=== PATIENT | female | born 1960 | race Caucasian/White ===

== ENCOUNTER 2018-12-12 14:11 | Emergency (ER) | payer OTHER, SELFPAY ==
[2018-12-12 14:35] LABS: Absolute Lymphocytes (CBC) 2.4 K/uL (0.7-4.9); Basophils % 0.4 % (0-1.3); Hematocrit 43.2 % (36.0-45.0); Lymphocytes % 16.2 % (15.3-44.8)
[2018-12-12] MEDS ORDERED: ONDANSETRON 4 MG/2 ML VIAL ONE (14:35)
[2018-12-12] MEDS ORDERED: MEPERIDINE HCL 25 MG/0.5 ML ONE (14:35)
[2018-12-12] MEDS ORDERED: NA CHLORIDE 0.9% 1,000 ML ONE (14:35)
--- NOTE | 2018-12-12 14:43 | RAD REPORT ---
EXAM DESCRIPTION: CT - Stone Protocol - 12/12/2018 2:30 pm CLINICAL HISTORY: Abdominal pain. Lower abdominal pain. Urinary frequency COMPARISON: None. TECHNIQUE: Computed axial tomography of the abdomen pelvis was obtained without oral or IV contrast. Lack of IV and oral contrast limits evaluation of solid organs, bowel, and vessels. Coronal reformat jonatan images were obtained and reviewed. All CT scans are performed using dose optimization technique as appropriate and may include automated exposure control or mA/KV adjustment according to patient size. FINDINGS: A renal calculus is not seen. Mild to moderate right hydronephrosis with right perirenal s tranding. 10 millimeter calculus proximal right ureter Hounsfield unit 1453. 27 millimeter low-densit y mass probably a cyst extends off the left kidney The liver, spleen, pancreas and adrenals appear grossly normal. Cholecystectomy There is no evidence of diverticulitis. The appendix appears normal IMPRESSION: A 10 millimeter calculus proximal right ureter resulting in mild to moderate right hydro nephrosis
[2018-12-12 14:48] LABS: ALT/SGPT 132 U/L (12-78); AST/SGOT 111 U/L (15-37); Albumin 3.6 g/dL (3.4-5.0); Alkaline Phosphatase 112 U/L (45-117); BUN Blood Urea Nitrogen 14 mg/dL (7-18); Bicarbonate 29 mmol/L (21-32); Bilirubin Direct < 0.1 mg/dL (0-0.2); Bilirubin Total 0.2 mg/dL (0.2-1.0); Glucose Level 138 mg/dL (74-106); Lipase 221 U/L (73-393); Potassium 4.3 mmol/L (3.5-5.1); Protein, Total 7.1 g/dL (6.4-8.2); Sodium Level 142 mmol/L (136-145)
[2018-12-12 15:07] LABS: Urine Bacteria <20 /HPF (<20); Urine Culture Reflex Order NOT NEEDED; Urine RBC >50 /HPF (NONE SEEN)
[2018-12-12 15:10] LABS: Urine Blood 3+ (NEG); Urine Glucose NEGATIVE (NEG); Urine Protein 1+ (NEG); Urine Specific Gravity >1.030 (1.005-1.030)
[2018-12-12] MEDS ORDERED: TAMSULOSIN 0.4 MG SR CAP ONE (15:11)
[2018-12-12] MEDS ORDERED: MAGNESIUM SULFATE 1 gm IVPB 1 GM/100 ML BAG IV ONE (15:11)
[2018-12-12] MEDS ORDERED: MORPHINE 4 MG/ML SYR ONE (15:19)
--- NOTE | 2018-12-12 16:02 | ER ---
Nurse's Notes [facility] Name: Carla Andrews Age: 58 yrs Sex: Female : 1960 Arrival Date: 12/12/2018 Time: 14:14 Bed 28 Private MD: Diagnosis: Hydronephrosis with renal and ureteral calculous obstruction Presentation: 12/12 14:16 Presenting complaint: Patient states: complaining of flank pain on the right side. does rv not radiate. described as continuous sharp pain. vomited on transport, given Zofran 4mg IV. Transition of care: patient was not received from another setting of care. Onset of symptoms was December 12, 2018 at 14:00. Risk Assessment: Do you want to hurt yourself or someone else? Patient reports no desire to harm self or others. Initial Sepsis Screen: Does the patient meet any 2 criteria? No. Patient's initial sepsis screen is negative. Does the patient have a suspected source of infection? No. Patient's initial sepsis screen is negative. Care prior to arrival: None. 14:16 Method Of Arrival: EMS: central rv 14:16 Acuity: JAMES 3 rv Triage Assessment: 14:21 General: Appears. rv Historical: - Allergies: 14:27 Aspirin; rv 14:27 Dilantin; rv 14:27 Flexeril; rv - Home Meds: 14:27 atorvastatin 20 mg oral tab 1 tab once daily [Active]; primidone 250 mg Oral tab 1 tab rv twice a day [Active]; - PMHx: 14:27 High Cholesterol; Seizures; rv - PSHx: 14:27 Hysterectomy; ; Cholecystectomy; rv - Immunization history:: Adult Immunizations up to date. - Social history:: Smoking status: Patient uses tobacco products, smokes one pack cigarettes per day. - Family history:: not pertinent. - Ebola Screening: : No symptoms or risks identified at this time. - Hospitalizations: : No recent hospitalization is reported. Screenin:29 Abuse screen: Denies threats or abuse. Denies injuries from another. Nutritional rv screening: No deficits noted. Tuberculosis screening: No symptoms or risk factors identified. Fall Risk None identified. Assessment: 14:28 General: Appears in no apparent distress. uncomfortable, Behavior is calm, cooperative. rv Pain: Complains of pain in right flank. Neuro: Level of Consciousness is awake, alert, obeys commands, Oriented to person, place, time, situation. Cardiovascular: Patient's skin is warm and dry. Respiratory: Airway is patent. GI: Abdomen is round Abd is soft X 4 quads Abdomen is tender to palpation in right lower quadrant. : No signs and/or symptoms were reported regarding the genitourinary system. EENT: No signs and/or symptoms were reported regarding the EENT system. Derm: Skin is intact. Musculoskeletal: No signs and/or symptoms reported regarding the musculoskeletal system. 15:05 Reassessment: Patient appears in no apparent distress at this time. Patient and/or rv family updated on plan of care and expected duration. Pain level reassessed. Patient is alert, oriented x 3, equal unlabored respirations, skin warm/dry/pink. blood and radiology reports explained to patient by Dr Steward. discussed plan of care. 15:56 Reassessment: Patient appears in no apparent distress at this time. Patient and/or rv family updated on plan of care and expected duration. Pain level reassessed. Patient is alert, oriented x 3, equal unlabored respirations, skin warm/dry/pink. PATIENT IS FOR TRANSFER TO ANOTHER HOSPITAL FOR CONTINUATION OF CARE. DR STEWARD EXPLAINED TO PATIENT AT BEDSIDE. 17:26 Reassessment: REPORT GIVEN TO HAYDEN CEE RN OF [facility]. rv Vital Signs: 14:20 BP 182 / 72; Pulse 85; Resp 18; Temp 98.9; Pulse Ox 100% on R/A; Weight 113.4 kg; rv Height 5 ft. 6 in. (167.64 cm); Pain 8/10; 15:04 BP 167 / 90; Pulse 73; Resp 16; Pulse Ox 95% on R/A; rv 15:56 BP 163 / 90; Pulse 81; Resp 15; Pulse Ox 96% on R/A; rv 17:25 BP 155 / 86; Pulse 88; Resp 18; Temp 98.5; Pulse Ox 99% on NC; rv 14:20 Body Mass Index 40.35 (113.40 kg, 167.64 cm) rv ED Course: 14:14 Patient arrived in ED. mg2 14:15 Maury Steward MD is Attending Physician. rn 14:15 Maintain EMS IV. Dressing intact. Good blood return noted. Site clean \T\ dry. Gauge \T\ mg 2 site: 20 \T\ RAC. 14:16 Jarek Pickard, KATE is Primary Nurse. rv 14:20 Triage completed. rv 14:29 Patient has correct armband on for positive identification. Bed in low position. Call rv light in reach. Side rails up X 1. Pulse ox on. NIBP on. 14:29 Patient placed in the treatment room, on a stretcher, on pulse oximetry, Patient rv notified of wait time. 14:29 Warm blanket given. rv 14:31 CT Stone Protocol In Process Unspecified. EDMS 15:44 attempted transfer to [facility], pt was declined due to no urologist bd avaliable, per floyd rodriguez. 17:25 No provider procedures requiring assistance completed. Patient transferred, IV remains rv in place. Administered Medications: 14:30 Drug: Zofran 4 mg Route: IVP; Site: right antecubital; mg2 15:00 Follow up: Response: No adverse reaction mg2 14:30 Drug: Demerol 25 mg Route: IVP; Site: right antecubital; mg2 14:52 Follow up: Response: No adverse reaction; Marked relief of symptoms mg2 14:43 Drug: NS 0.9% 1000 ml Route: IV; Rate: 100 ml/hr; Site: right antecubital; rv 14:59 Drug: Flomax 0.4 mg Route: PO; mg2 17:24 Follow up: Response: No adverse reaction rv 15:00 Drug: Magnesium Sulfate 1 grams Route: IVPB; Infused Over: 1 hrs; Site: right mg2 antecubital; 17:24 Follow up: IV Status: Completed infusion rv 15:04 Drug: morphine 4 mg Route: IVP; Site: right antecubital; mg2 17:24 Follow up: Response: Pain is decreased rv 16:57 Drug: morphine 4 mg Route: IVP; Site: right antecubital; rv 17:23 Follow up: Response: No adverse reaction; Medication administered at discharge. rv Outcome: 16:02 ER care complete, transfer ordered by MD. joseph 17:26 Transferred by ground EMS to [facility], Transfer form rv completed. X-rays sent w/ patient. 17:26 Condition: stable 17:26 Instructed on the need for transfer. 17:27 Patient left the ED. rv Signatures: Dispatcher [employer] EDMS Dirrim, Jazmine bd Steward, Maury, MD MD rn Andrey Jean RN RN mg2 Jarek Pickard RN RN rv
--- NOTE | 2018-12-12 16:03 | EDPHYS ---
Physician Documentation [facility] Name: Carla Andrews Age: 58 yrs Sex: Female : 1960 Arrival Date: 12/12/2018 Time: 14:14 Bed 28 Private MD: ED Physician Maury Steward HPI: 12/12 14:16 This 58 yrs old Female presents to ER via Unassigned with complaints of flank rn pain. 14:16 The patient complains of pain in the right low back. The pain radiates to the abdomen. rn Onset: The symptoms/episode began/occurred 1 year(s) ago. Modifying factors: The symptoms are alleviated by nothing. the symptoms are aggravated by nothing. Associated signs and symptoms: Pertinent positives: diarrhea, nausea, vomiting. Severity of pain: At its worst the pain was moderate in the emergency department the pain has improved. The patient has experienced similar episodes in the past. Reports right low back/flank for about a year, intermittent, worse today, assoc with vomiting/diarrhea, worse with bowel movement, no trauma, no fever. . Historical: - Allergies: 14:27 Aspirin; rv 14:27 Dilantin; rv 14:27 Flexeril; rv - Home Meds: 14:27 atorvastatin 20 mg oral tab 1 tab once daily [Active]; primidone 250 mg Oral tab 1 tab rv twice a day [Active]; - PMHx: 14:27 High Cholesterol; Seizures; rv - PSHx: 14:27 Hysterectomy; ; Cholecystectomy; rv - Immunization history:: Adult Immunizations up to date. - Social history:: Smoking status: Patient uses tobacco products, smokes one pack cigarettes per day. - Family history:: not pertinent. - Ebola Screening: : No symptoms or risks identified at this time. - Hospitalizations: : No recent hospitalization is reported. ROS: 14:16 Constitutional: Negative for fever, chills, and weight loss, Eyes: Negative for injury, rn pain, redness, and discharge, Neck: Negative for injury, pain, and swelling, Cardiovascular: Negative for chest pain, palpitations, and edema, Respiratory: Negative for shortness of breath, cough, wheezing, and pleuritic chest pain, Abdomen/GI: + abd pain with nausea/vomiting/diarrhea Back: Negative for injury : Negative for injury, bleeding, discharge, and swelling, MS/Extremity: Negative for injury and deformity, Skin: Negative for injury, rash, and discoloration, Neuro: Negative for headache, weakness, numbness, tingling, and seizure. Exam: 14:16 Constitutional: Overweight female, no acute distress Head/Face: Normocephalic, rn atraumatic. Cardiovascular: Regular rate and rhythm. No pulse deficits. Respiratory: No increased work of breathing, no retractions or nasal flaring. Abdomen/GI: soft, + suprapubic and RLQ tenderness, no rebound Back: No spinal tenderness. No costovertebral tenderness. Full range of motion. MS/ Extremity: Pulses equal, no cyanosis. Neurovascular intact. Full, normal range of motion. Equal circumference. Neuro: Awake and alert, GCS 15, oriented to person, place, time, and situation. Cranial nerves II-XII grossly intact. Motor strength 5/5 in all extremities. Sensory grossly intact. Vital Signs: 14:20 BP 182 / 72; Pulse 85; Resp 18; Temp 98.9; Pulse Ox 100% on R/A; Weight 113.4 kg; rv Height 5 ft. 6 in. (167.64 cm); Pain 8/10; 15:04 BP 167 / 90; Pulse 73; Resp 16; Pulse Ox 95% on R/A; rv 15:56 BP 163 / 90; Pulse 81; Resp 15; Pulse Ox 96% on R/A; rv 17:25 BP 155 / 86; Pulse 88; Resp 18; Temp 98.5; Pulse Ox 99% on NC; rv 14:20 Body Mass Index 40.35 (113.40 kg, 167.64 cm) rv MDM: 14:15 Patient medically screened. rn 15:50 Differential diagnosis: nephrolithiasis, UTI, diverticulitis. Data reviewed: vital rn signs, nurses notes, lab test result(s), radiologic studies, CT scan, and as a result, I will admit patient. Counseling: I had a detailed discussion with the patient and/or guardian regarding: the historical points, exam findings, and any diagnostic results supporting the discharge/admit diagnosis, lab results, radiology results, the need to transfer to another facility, [facility] does not immediately have the required specialist. Response to treatment: the patient's symptoms have mildly improved after treatment, and as a result, I will admit patient. ED course: Pt with improvement of symptoms but still in pain, acute 10mm proximal right ureteral stone with moderate hydro, low likelihood of passage, first stone, and no urology here[place] [facility], per transfer center no urology coverage. Will transfer to another facility with urology coverage. . 15:59 ED course: Accepted for transfer to [facility]. rn 12/12 14:15 Order name: Basic Metabolic Panel; Complete Time: 14:51 rn 12/12 14:15 Order name: CBC with Diff; Complete Time: 14:51 rn 12/12 14:15 Order name: Creatinine for Radiology; Complete Time: 14:51 rn 12/12 14:15 Order name: Hepatic Function; Complete Time: 14:51 rn 12/12 14:15 Order name: Lipase; Complete Time: 14:51 rn 12/12 14:15 Order name: Urine Microscopic Only; Complete Time: 15:13 rn 12/12 14:15 Order name: CT Stone Protocol; Complete Time: 14:51 rn 12/12 14:30 Order name: Urine Dipstick--Ancillary (enter results); Complete Time: 15:13 bd 12/12 14:30 Order name: Urine --Ancillary (enter results); Complete Time: 15:13 12/12 14:15 Order name: IV Saline Lock; Complete Time: 14:30 rn 12/12 14:15 Order name: Labs collected and sent; Complete Time: 14:30 rn 12/12 14:15 Order name: Urine Dipstick-Ancillary (obtain specimen); Complete Time: 14:30 rn Administered Medications: 14:30 Drug: Zofran 4 mg Route: IVP; Site: right antecubital; mg2 15:00 Follow up: Response: No adverse reaction mg2 14:30 Drug: Demerol 25 mg Route: IVP; Site: right antecubital; mg2 14:52 Follow up: Response: No adverse reaction; Marked relief of symptoms mg2 14:43 Drug: NS 0.9% 1000 ml Route: IV; Rate: 100 ml/hr; Site: right antecubital; rv 14:59 Drug: Flomax 0.4 mg Route: PO; mg2 17:24 Follow up: Response: No adverse reaction rv 15:00 Drug: Magnesium Sulfate 1 grams Route: IVPB; Infused Over: 1 hrs; Site: right mg2 antecubital; 17:24 Follow up: IV Status: Completed infusion rv 15:04 Drug: morphine 4 mg Route: IVP; Site: right antecubital; mg2 17:24 Follow up: Response: Pain is decreased rv 16:57 Drug: morphine 4 mg Route: IVP; Site: right antecubital; rv 17:23 Follow up: Response: No adverse reaction; Medication administered at discharge. rv Disposition: 12/12/18 16:02 Transfer ordered to [facility]. Diagnosis is Hydronephrosis with renal and ureteral calculous obstruction. - Reason for transfer: Higher level of care. - Accepting physician is Dr. Hernandez. - Condition is Stable. - Problem is new. - Symptoms have improved. Signatures: Dispatcher [employer] EDMS Maury Steward MD MD rn Gardose, Michele, RN RN mg2 Jarek Pickard RN RN rv Corrections: (The following items were deleted from the chart) 16:00 15:50 ED course: Pt with improvement of symptoms but still in pain, acute 10mm proximal rn right ureteral stone with moderate hydro, low likelihood of passage, first stone, and no urology here[place] [facility] [place] Will transfer to another facility with urology coverage. . rn 16:21 16:02 12/12/2018 16:02 Transfer ordered to [facility]. Diagnosis is Hydronephrosis rn with renal and ureteral calculous obstruction. Reason for transfer: Higher level of care. Accepting physician is . Condition is Stable. Problem is new. Symptoms have improved. rn 17:27 16:21 12/12/2018 16:02 Transfer ordered to [facility]. Diagnosis is Hydronephrosis rv with renal and ureteral calculous obstruction. Reason for transfer: Higher level of care. Accepting physician is Dr. Hernandez. Condition is Stable. Problem is new. Symptoms have improved. rn
== END 2018-12-12 17:27 | disposition short-term general hospital (02) ==
LOC: ER 14:11
DX: N13.2 Hydronephrosis with renal and ureteral calculous obstruction (principal); E78.00 Pure hypercholesterolemia, unspecified; F17.210 Nicotine dependence, cigarettes, uncomplicated; Z88.6 Allergy status to analgesic agent; Z88.8 Allergy status to other drugs, medicaments and biological substances
CPT/HCPCS: 36415; 74176; 76377; 80048; 80076; 81003; 81015; 81025; 83690; 85025; J2175; J2405; J3475; J7030